=== PATIENT | female | born 1975 | race American Indian/Alaskan Native ===

== ENCOUNTER 2016-12-29 22:39 | Emergency (ER) | payer MEDICAID ==
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
[2016-12-30 02:47] VITALS: BP 137/72
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
== END 2016-12-30 00:32 | disposition home or self-care (01) ==
LOC: MW.ED 22:39
DX: S89.92XA Unspecified injury of left lower leg, initial encounter (principal); I25.2 Old myocardial infarction; M19.90 Unspecified osteoarthritis, unspecified site; M06.9 Rheumatoid arthritis, unspecified; E11.9 Type 2 diabetes mellitus without complications; Z86.2 Personal history of diseases of the blood and blood-forming organs and certain disorders involving the immune mechanism; Z90.710 Acquired absence of both cervix and uterus; Z79.84 Long term (current) use of oral hypoglycemic drugs; Z79.899 Other long term (current) drug therapy; Z88.5 Allergy status to narcotic agent; V49.9XXA Car occupant (driver) (passenger) injured in unspecified traffic accident, initial encounter; Y92.410 Unspecified street and highway as the place of occurrence of the external cause
CPT/HCPCS: 73562-26-LT; 73562-LT; 99282; 99284

== ENCOUNTER 2019-01-01 20:22 | Emergency (ER) | payer SELFPAY ==
[2019-01-01 21:17] VITALS: BP 136/73
--- NOTE | 2019-01-01 21:57 | EDM.PDOC ---
ED HPI GENERAL MEDICAL PROBLEM - General Chief Complaint: ENT Problem Stated Complaint: ROCK IN EAR Time Seen by Provider: 01/01/19 21:55 Source of Information: Reports: Patient - History of Present Illness INITIAL COMMENTS - FREE TEXT/NARRATIVE: HISTORY AND PHYSICAL: History of present illness: [Patient states that she was crawling under a bronchoscopy today doing some maintenance and she feels as if there is a rock in her left ear, on examination she has a right otitis externa pain with movement of the auricle inflammation of the external canal no foreign body tympanic membrane mildly injected no mastoid tenderness On the left she does have an otitis media or loss of landmarks redness bulging no foreign body appreciated as well as an otitis externa no mastoid tenderness No fever nausea vomiting chills sweats ] Review of systems: As per history of present illness and below otherwise all systems reviewed and negative. Past medical history: As per history of present illness and as reviewed below otherwise noncontributory. Surgical history: As per history of present illness and as reviewed below otherwise noncontributory. Social history: No reported history of drug or alcohol abuse. Family history: As per history of present illness and as reviewed below otherwise noncontributory. Physical exam: HEENT: Atraumatic, normocephalic, pupils reactive, negative for conjunctival pallor or scleral icterus, mucous membranes moist, throat clear, neck supple, nontender, trachea midline. ear exam as above Lungs: Clear to auscultation, breath sounds equal bilaterally, chest nontender. Heart: S1S2, regular, negative for clicks, rubs, or JVD. Abdomen: Soft, nondistended, nontender. Negative for masses or hepatosplenomegaly. Negative for costovertebral tenderness. Pelvis: Stable nontender. Genitourinary: Deferred. Rectal: Deferred. Extremities: Atraumatic, negative for cords or calf pain. Neurovascular unremarkable. Neuro: Awake, alert, oriented. Cranial nerves II through XII unremarkable. Cerebellum unremarkable. Motor and sensory unremarkable throughout. Exam nonfocal. Diagnostics: [Clinical ] Therapeutics: [ Cortisporin otic amoxicillin ] Impression: [ left otitis media bilateral Otitis externa ] Definitive disposition and diagnosis as appropriate pending reevaluation and review of above. left ear Pain Score (Numeric/FACES): 8 - Related Data Allergies Allergy/AdvReac Type Severity Reaction Status Date / Time tramadol Allergy Hives Verified 01/01/19 21:17 Home Meds: Home Meds metFORMIN [Glucophage XR] 500 mg PO DAILY 12/23/15 [History] Past Medical History HEENT History: Reports: Impaired Vision Other HEENT History: wears galsses Cardiovascular History: Reports: [place], Other (See Below) Other Cardiovascular History: [place] last year. 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 Musculoskeletal History: Reports: Osteoarthritis, Other (See Below) Other Musculoskeletal History: Rheumatoid arthritis Neurological History: Reports: None Psychiatric History: Reports: None Endocrine/Metabolic History: Reports: Diabetes, Type II Hematologic History: Reports: Anemia Dermatologic History: Reports: None - Infectious Disease History Infectious Disease History: Reports: Chicken Pox - Past Surgical History Female Surgical History: Reports: Hysterectomy Social & Family History - Family History Family Medical History: Noncontributory - Tobacco Use Smoking Status *Q: Never Smoker - Recreational Drug Use Recreational Drug Use: No ED ROS GENERAL - Review of Systems Review Of Systems: See Below ED EXAM, GENERAL - Physical Exam Exam: See Below Course - Vital Signs Last Recorded V/S: Last Vital Signs Temp 98.7 F 01/01/19 21:10 Pulse 80 01/01/19 21:10 Resp 18 01/01/19 21:10 BP 136/73 01/01/19 21:10 Pulse Ox 96 01/01/19 21:10 Departure - Departure Time of Disposition: 21:57 Disposition: Home, Self-Care 01 Condition: Good Clinical Impression: Otitis media, Otitis externa - Discharge Information Referrals: PCP,None [Primary Care Provider] - Additional Instructions: The following information is given to patients seen in the emergency department who are being discharged to home. This information is to outline your options for follow-up care. We provide all patients seen in our emergency department with a follow-up referral. The need for follow-up, as well as the timing and circumstances, are variable depending upon the specifics of your emergency department visit. If you don't have a primary care physician on staff, we will provide you with a referral. We always advise you to contact your personal physician following an emergency department visit to inform them of the circumstance of the visit and for follow-up with them and/or the need for any referrals to a consulting specialist. The emergency department will also refer you to a specialist when appropriate. This referral assures that you have the opportunity for follow-up care with a specialist. All of these measure are taken in an effort to provide you with optimal care, which includes your follow-up. Under all circumstances we always encourage you to contact your private physician who remains a resource for coordinating your care. When calling for follow-up care, please make the office aware that this follow-up is from your recent emergency room visit. If for any reason you are refused follow-up, please contact the [facility] emergency department at and asked to speak to the emergency department charge nurse.
== END 2019-01-01 22:17 | disposition home or self-care (01) ==
LOC: MW.ED 20:22
DX: H66.92 Otitis media, unspecified, left ear (principal); H60.93 Unspecified otitis externa, bilateral; I25.2 Old myocardial infarction; E11.9 Type 2 diabetes mellitus without complications; Z79.84 Long term (current) use of oral hypoglycemic drugs; Z88.5 Allergy status to narcotic agent
CPT/HCPCS: 99282